=== PATIENT | male | born 2000 | race Caucasian/White ===

== ENCOUNTER 2022-05-23 14:52 | Inpatient (IN) ==
[2022-05-23 18:20] LABS: Basophils % 0.3 % (0.0-0.8); Eosinophils % 0.2 % (0.00-10.9); Hematocrit 39.1 VOL% (42.0-52.0); Hemoglobin 13.5 GM/DL (14.0-18.0); Immature Granulocytes % 0.4 %; Immature Granulocytes Absolute 0.05 #; Lymphocytes # 1.8 10*3/uL (1.4-4.0); Mean Corpuscular HGB Conc 34.5 GM/DL (32-36); Mean Corpuscular Volume 82.3 FL (87-102); Mean Platelet Volume 8.6 FL (9.6-12.0); Monocytes # 0.8 10*3/uL (0.11-0.8); Monocytes % 6.3 % (1.7-12.7); Neutrophils % 77.8 % (38.7-73.9); Platelet Count 175 T/CUMM (130-400); Red Blood Count 4.75 MC/CUMM (3.8-5.5); White Blood Count 12.17 T/CUMM (4-12)
[2022-05-23 18:39] LABS: Bilirubin,Urine Negative (Negative); Blood, Urine Trace mg/dL (Negative); Glucose,Urine (UA) Negative (Negative); Ketones,Urine Trace mg/dL (Negative); Nitrite,Urine Negative (Negative); Protein,Urine Negative (Negative); Urine Appearance Clear (Clear); Urine Color Light Yellow (Yellow); Urine Specific Gravity <= 1.005 (1.001-1.035); Urine Urobilinogen 0.2 eU/dL (<2.0)
[2022-05-23 18:40] LABS: Albumin 4.5 G/DL (3.4-5.0); Calcium 9.1 MG/DL (8.5-10.1); Osmolality,Calculated 248.5 MOS/KG (273-304); Potassium 3.8 MMOL/L (3.5-5.1); Total Protein 7.6 G/DL (6.4-8.2)
[2022-05-23 18:51] LABS: Barbiturates Screen,Urine Negative (Negative); Benzodiazepines Screen,Urine Negative (Negative); Cannabinoid Screen,Urine Negative (Negative); Opiate Screen,Urine Negative (Negative); Phencyclidine Screen,Urine Negative (Negative)
[2022-05-23] MEDS ORDERED: ONDANSETRON 4 MG/2 ML VIAL IV ONE (19:14)
[2022-05-23] MEDS ORDERED: SODIUM CHLORIDE 0.9% 1,000 ML IV STA (19:14)
[2022-05-23] MEDS ORDERED: PANTOPRAZOLE 40 MG VIAL IV STA (19:21)
[2022-05-23] MEDS ORDERED: LORazepam 2 MG/1 ML VIAL ONE (19:29)
[2022-05-23] MEDS ORDERED: LORazepam 2 MG/1 ML VIAL IV STA (19:34)
[2022-05-23 21:06] LABS: Albumin 4.5 G/DL (3.4-5.0); Bilirubin,Total 2.3 MG/DL (0.20-1.00); Calcium 9.4 MG/DL (8.5-10.1); Osmolality,Calculated 255.9 MOS/KG (273-304); Potassium 3.1 MMOL/L (3.5-5.1); Total Protein 7.8 G/DL (6.4-8.2)
[2022-05-23 23:41] LABS: Arterial Base Excess iSTAT 2 MMOL/L (-2.5-2.5); Arterial Bicarbonate iSTAT 26.1 MMOL/L (20-26); Arterial O2 Saturation iSTAT 85 % (95-100); Arterial PCO2 iSTAT 38 MM HG (35-48); Arterial PO2 iSTAT 48 MM HG (80-95); Arterial Total CO2 iSTAT 27 MMO/L (23-27); Arterial pH iSTAT 7.444 (7.35-7.45)
[2022-05-23 23:55] LABS: Arterial Base Excess iSTAT 2 MMOL/L (-2.5-2.5); Arterial Bicarbonate iSTAT 25.8 MMOL/L (20-26); Arterial O2 Saturation iSTAT 87 % (95-100); Arterial PCO2 iSTAT 37 MM HG (35-48); Arterial PO2 iSTAT 50 MM HG (80-95); Arterial Total CO2 iSTAT 27 MMO/L (23-27); Arterial pH iSTAT 7.454 (7.35-7.45)
[2022-05-24] MEDS ORDERED: LEVOFLOXACIN INJ 500 MG/100 ML PREMIX IV ONE (00:45)
[2022-05-24] MEDS ORDERED: ONDANSETRON 4 MG/2 ML VIAL IV PRN (00:49)
[2022-05-24 00:56] LABS: Basophils % 0.2 % (0.0-0.8); Eosinophils % 0.1 % (0.00-10.9); Hematocrit 39.4 VOL% (42.0-52.0); Hemoglobin 13.7 GM/DL (14.0-18.0); Immature Granulocytes % 0.6 %; Immature Granulocytes Absolute 0.07 #; Lymphocytes % 8.6 % (21.2-54.2); Mean Corpuscular HGB Conc 34.8 GM/DL (32-36); Mean Corpuscular Volume 82.6 FL (87-102); Mean Platelet Volume 8.2 FL (9.6-12.0); Monocytes # 0.8 10*3/uL (0.11-0.8); Monocytes % 6.6 % (1.7-12.7); Neutrophils % 83.9 % (38.7-73.9); Platelet Count 135 T/CUMM (130-400); Red Blood Count 4.77 MC/CUMM (3.8-5.5); Red Cell Distribution Width 11.9 % (9.3-17.3); White Blood Count 11.38 T/CUMM (4-12)
[2022-05-24 01:18] LABS: Albumin 3.9 G/DL (3.4-5.0); Bilirubin,Total 2.4 MG/DL (0.20-1.00); Osmolality,Calculated 256.8 MOS/KG (273-304); Potassium 3.7 MMOL/L (3.5-5.1); Total Protein 6.9 G/DL (6.4-8.2)
[2022-05-24] MEDS ORDERED: MAGNESIUM SULF RIDER 2 GM/50 ML PREMIX IV ONE ×2 (01:29→04:00)
[2022-05-24] MEDS: ALBUTEROL/IPRATROPIUM 3 ML NEB RESP TX SCH ×5 (01:30→23:52)
[2022-05-24] MEDS: SODIUM CHLORIDE 0.9% 1,000 ML IV SCH ×2 (02:21→15:00)
[2022-05-24] MEDS ORDERED: ACETAMINOPHEN 325 MG TABLET PO PRN (04:45)
[2022-05-24 05:25] LABS: Albumin 3.7 G/DL (3.4-5.0); Bilirubin,Total 2.1 MG/DL (0.20-1.00); Calcium 8.5 MG/DL (8.5-10.1); Osmolality,Calculated 261.5 MOS/KG (273-304); Potassium 3.9 MMOL/L (3.5-5.1); Total Protein 6.4 G/DL (6.4-8.2)
[2022-05-24] MEDS: LORazepam 2 MG/1 ML VIAL IV PRN ×3 (05:29→17:30)
[2022-05-24] MEDS: MULTIVITAMIN (CENTRUM) TABLET PO SCH (08:55)
[2022-05-24] MEDS: PANTOPRAZOLE 40 MG TABLET PO SCH (08:55)
[2022-05-24] MEDS: THIAMINE 100 MG TABLET PO SCH (08:56)
[2022-05-24] MEDS: FOLIC ACID 1 MG TABLET PO SCH (08:56)
[2022-05-24] MEDS ORDERED: METHOCARBAMOL 750 MG TABLET PO PRN (10:06)
[2022-05-24] MEDS ORDERED: HydrOXYzine PAMOATE 50 MG CAPSULE PO PRN (10:06)
[2022-05-24] MEDS ORDERED: DICYCLOMINE 10 MG CAPSULE PO PRN (10:06)
[2022-05-24] MEDS ORDERED: HydrOXYzine PAMOATE 25 MG CAPSULE PO PRN (11:00)
[2022-05-24] MEDS: chlordiazePOXIDE 25 MG CAPSULE PO SCH ×3 (11:41→23:15)
[2022-05-24] MEDS: cefTRIAXone 1,000 MG in SODIUM CHLORIDE 0.9% 100 ML IV SCH (14:57)
[2022-05-24] MEDS: AZITHROMYCIN INJ 500 MG in SODIUM CHLORIDE 0.9% 250 ML IV SCH (14:57)
[2022-05-24] MEDS ORDERED: diphenhydrAMINE 50 MG/1 ML VIAL IV ONE (19:10)
[2022-05-24] MEDS ORDERED: ZIPRASIDONE 20 MG/1 ML VIAL IM ONE (19:10)
[2022-05-24] MEDS ORDERED: HALOPERIDOL 5 MG/ML AMP IM ONE (19:10)
[2022-05-24] MEDS ORDERED: ZIPRASIDONE 20 MG/1 ML VIAL IM PRN (19:13)
[2022-05-24] MEDS ORDERED: HALOPERIDOL 5 MG/ML AMP IM PRN (19:13)
[2022-05-24] MEDS ORDERED: LORazepam 2 MG/1 ML VIAL IV PRN (19:14)
[2022-05-24] MEDS: ENOXAPARIN 40 MG/0.4 ML SYRINGE SUBCUT SCH (21:59)
[2022-05-25] MEDS ORDERED: LEVOFLOXACIN INJ 500 MG/100 ML PREMIX IV SCH (01:00)
[2022-05-25 05:02] LABS: Basophils % 0.2 % (0.0-0.8); Eosinophils # 0.1 10*3/uL (0.0-0.87); Hematocrit 39.4 VOL% (42.0-52.0); Hemoglobin 13.4 GM/DL (14.0-18.0); Immature Granulocytes % 0.3 %; Immature Granulocytes Absolute 0.02 #; Lymphocytes # 0.9 10*3/uL (1.4-4.0); Lymphocytes % 15.7 % (21.2-54.2); Mean Corpuscular Volume 84.5 FL (87-102); Mean Platelet Volume 9.4 FL (9.6-12.0); Monocytes # 0.5 10*3/uL (0.11-0.8); Monocytes % 7.9 % (1.7-12.7); Neutrophils % 74.9 % (38.7-73.9); Platelet Count 121 T/CUMM (130-400); Red Blood Count 4.66 MC/CUMM (3.8-5.5); Red Cell Distribution Width 12.2 % (9.3-17.3); White Blood Count 5.73 T/CUMM (4-12)
[2022-05-25] MEDS: chlordiazePOXIDE 25 MG CAPSULE PO SCH ×3 (05:06→19:52)
[2022-05-25 05:21] LABS: Albumin 3.8 G/DL (3.4-5.0); Osmolality,Calculated 282.1 MOS/KG (273-304); Potassium 3.3 MMOL/L (3.5-5.1)
[2022-05-25] MEDS: ALBUTEROL/IPRATROPIUM 3 ML NEB RESP TX SCH (07:29)
[2022-05-25] MEDS ORDERED: POTASSIUM CHLORIDE 20 MEQ TABLET PO ONE (07:42)
[2022-05-25] MEDS: MULTIVITAMIN (CENTRUM) TABLET PO SCH (08:26)
[2022-05-25] MEDS: THIAMINE 100 MG TABLET PO SCH (08:26)
[2022-05-25] MEDS: FOLIC ACID 1 MG TABLET PO SCH (08:26)
[2022-05-25] MEDS: PANTOPRAZOLE 40 MG TABLET PO SCH (08:26)
[2022-05-25] MEDS: cefTRIAXone 1,000 MG in SODIUM CHLORIDE 0.9% 100 ML IV SCH (15:40)
[2022-05-25] MEDS: AZITHROMYCIN INJ 500 MG in SODIUM CHLORIDE 0.9% 250 ML IV SCH (15:40)
[2022-05-25] MEDS: ENOXAPARIN 40 MG/0.4 ML SYRINGE SUBCUT SCH (21:13)
[2022-05-26 04:24] LABS: Basophils % 0.2 % (0.0-0.8); Eosinophils # 0.1 10*3/uL (0.0-0.87); Eosinophils % 2.5 % (0.00-10.9); Hematocrit 40.8 VOL% (42.0-52.0); Hemoglobin 13.7 GM/DL (14.0-18.0); Immature Granulocytes % 0.4 %; Immature Granulocytes Absolute 0.02 #; Lymphocytes # 1.3 10*3/uL (1.4-4.0); Lymphocytes % 28.4 % (21.2-54.2); Mean Corpuscular HGB Conc 33.6 GM/DL (32-36); Mean Corpuscular Volume 85.7 FL (87-102); Mean Platelet Volume 9.6 FL (9.6-12.0); Monocytes # 0.4 10*3/uL (0.11-0.8); Monocytes % 9.8 % (1.7-12.7); Neutrophils % 58.7 % (38.7-73.9); Platelet Count 114 T/CUMM (130-400); Red Blood Count 4.76 MC/CUMM (3.8-5.5); Red Cell Distribution Width 12.1 % (9.3-17.3); White Blood Count 4.47 T/CUMM (4-12)
[2022-05-26 04:50] LABS: Albumin 3.6 G/DL (3.4-5.0); Bilirubin,Total 0.6 MG/DL (0.20-1.00); Calcium 9.3 MG/DL (8.5-10.1); Osmolality,Calculated 272.7 MOS/KG (273-304); Potassium 3.4 MMOL/L (3.5-5.1); Total Protein 7.1 G/DL (6.4-8.2)
[2022-05-26] MEDS: chlordiazePOXIDE 25 MG CAPSULE PO SCH ×2 (04:57→12:59)
[2022-05-26] MEDS ORDERED: AZITHROMYCIN 250 MG TABLET PO SCH (09:00)
[2022-05-26] MEDS: THIAMINE 100 MG TABLET PO SCH (09:04)
[2022-05-26] MEDS: MULTIVITAMIN (CENTRUM) TABLET PO SCH (09:04)
[2022-05-26] MEDS: FOLIC ACID 1 MG TABLET PO SCH (09:04)
[2022-05-26] MEDS: PANTOPRAZOLE 40 MG TABLET PO SCH (09:04)
[2022-05-26] MEDS ORDERED: POTASSIUM CHLORIDE 20 MEQ TABLET PO ONE ×2 (10:45→11:00)
[2022-05-26 13:46] VITALS: BP 132/71
== END 2022-05-26 16:10 | DRG 100 ==
LOC: N.ED 14:52 → SUATTDRO 05-24 00:49 → N.EDINP 05-24 00:49 → N.2E 05-24 07:03 → N.ICU 05-24 12:29
PROVIDERS: ADMIT Internal Medicine; ATTEND Internal Medicine